=== PATIENT | female | born 1995 | race African-American/Black ===

== ENCOUNTER 2016-07-01 05:26 | Inpatient (IN) | payer OTHER ==
[~2016-07-01] VITALS: Ht 170.2 cm; Wt 136.4 kg
[~2016-07-01 05:26] MED LIST: ESTRADIOL2 MG PO; ORTHO CYCLEN1 TABLET PO; SERTRALINE HCL50 MG PO
[2016-07-01 06:04] LABS: EOSINOPHIL (%) 0.3 % (0-5); HEMATOCRIT 42.8 % (36.0-46.0); IMMATURE GRANULOCYTE (%) 0.4 % (0.0-0.7); IMMATURE GRANULOCYTE COUNT 0.1 K/uL; INSTRUMENT ABS NEUTROPHIL CT 9.3 K/uL; MCV 87.3 FL (83-99); MEAN PLAT.VOLUME 9.6 uM^3 (9.5-12.4); MONOCYTE (%) 4.5 % (3-12); MONOCYTE COUNT 0.6 K/uL (0-0.8); NEUTROPHIL (%) 71.2 % (45-76); NEUTROPHIL COUNT 9.3 K/uL (1.8-6.4); PLATELET COUNT 543 K/uL (156-360); RBC DIS.WIDTH-CV 13.7 % (11.8-14.6); RBC DIS.WIDTH-SD 43.9 % (39-53)
[2016-07-01 06:12] LABS: CHLORIDE 107 mEq/L (99-109); POTASSIUM 3.4 mEq/L (3.7-5.4); SODIUM 137 mEq/L (136-147)
[2016-07-01 06:14] LABS: GLUCOSE 113 mg/dL (70-99)
[2016-07-01 06:15] LABS: ANION GAP 10 MEQ/L (2-14)
[2016-07-01 06:16] LABS: TOTAL BILIRUBIN 0.3 mg/dL (0.0-1.0)
[2016-07-01 06:17] LABS: SERUM ETHYL ALCOHOL < 10 mg/dL
[2016-07-01 06:18] LABS: ALKALINE PHOSPHATASE 81 IU/L (3-129); GFR ESTIMATE (CALCULATED) > 59 mL/min/
[2016-07-01 06:19] LABS: DIRECT BILIRUBIN 0.2 mg/dL (0.0-0.3)
[2016-07-01 06:20] LABS: UREA NITROGEN (BUN) 9 mg/dL (9-23)
[2016-07-01 06:21] LABS: SALICYLATE < 5.0 MG/DL (15-30)
[2016-07-01 10:46] LABS: ADD MEDTOX COMMENT Y; AMPHETAMINE NEGATIVE (500 ng/mL); BARBITURATES NEGATIVE (200 ng/mL); BENZODIAZEPINES NEGATIVE (150 ng/mL); COCAINE NEGATIVE (150 ng/mL); INTERNAL CONTROLS VALID? YES; METHADONE NEGATIVE (200 ng/mL); METHAMPHETAMINE NEGATIVE (500 ng/mL); OPIATES (MORPHINE) PRESUMPTIVE POSITIVE (100 ng/mL); OXYCODONE NEGATIVE (100 ng/mL); PHENCYCLIDINE NEGATIVE (25 ng/mL); PROPOXYPHENE NEGATIVE (300 ng/mL); THC CANNABINOIDS NEGATIVE (50 ng/mL); TRICYCLIC ANTIDEPRESSANTS NEGATIVE (300 ng/mL)
[2016-07-01] MEDS ORDERED: TRI-ESTARYLLA1 EACH PO (15:57)
[2016-07-01 16:31] VITALS: BP 139/95
[2016-07-01] MEDS ORDERED: MOTRIN400 MG PO (18:38)
[2016-07-02 07:26] VITALS: BP 143/94
[2016-07-02 15:47] VITALS: BP 151/85
[2016-07-03 07:50] VITALS: BP 139/83
[2016-07-03 15:47] VITALS: BP 155/91
[2016-07-03 19:35] VITALS: BP 154/88
[2016-07-04 08:00] VITALS: BP 146/78
== END 2016-07-04 11:20 | disposition home or self-care (01) | DRG 885 ==
LOC: EME 05:26 → EDOF 14:52 → 1WEST 14:52
PROVIDERS: Emergency Medicine
DX: F33.9 Major depressive disorder, recurrent, unspecified (principal); E66.3 Overweight; Z68.42 Body mass index [BMI] 45.0-49.9, adult; T40.4X2A Poisoning by other synthetic narcotics, intentional self-harm, initial encounter; T43.202A Poisoning by unspecified antidepressants, intentional self-harm, initial encounter; T40.2X2A Poisoning by other opioids, intentional self-harm, initial encounter; F60.3 Borderline personality disorder
CPT/HCPCS: 80048; 80076; 84999; 85025; 90837; 93005; 97165 GO; 99281; 99285; G0480; J2765; J7030

== ENCOUNTER 2016-07-08 14:57 | Emergency (ER) | payer OTHER ==
[~2016-07-08] VITALS: Ht 170.2 cm; Wt 137.4 kg
[~2016-07-08 14:57] MED LIST changes: +MOTRIN400 MG PO; +TRI-ESTARYLLA1 EACH PO
[2016-07-08 18:00] LABS: ADD MIUA? YES; BILIRUBIN NEGATIVE; BLOOD NEGATIVE; COLOR YELLOW ((YELLOW)); GLUCOSE (STRIP) NEGATIVE; KETONES NEGATIVE; LEUKOCYTES NEGATIVE; NITRITE NEGATIVE; PROTEIN (STRIP) NEGATIVE; SPECIFIC GRAVITY 1.029 (1.000-1.030); UROBILINOGEN 0.2 MG/DL (0.2-1.0)
[2016-07-08 18:05] LABS: BACTERIA RARE /HPF; EPITHELIAL CELLS 1+ /HPF; MUCUS TRACE /LPF; WHITE BLOOD CELLS 0-5 /HPF (0-5)
[2016-07-08 18:19] LABS: HEMATOCRIT 40.5 % (36.0-46.0); MCH 27.8 PG (29.0-34.0); MCHC 31.6 G/DL (30.0-36.0); MEAN PLAT.VOLUME 9.7 uM^3 (9.5-12.4); PLATELET COUNT 519 K/uL (156-360); RBC DIS.WIDTH-CV 13.6 % (11.8-14.6); WHITE BLOOD COUNT 11.3 K/uL (4.1-10.2)
[2016-07-08 18:28] LABS: AMPHETAMINE NEGATIVE (500 ng/mL); BARBITURATES NEGATIVE (200 ng/mL); BENZODIAZEPINES NEGATIVE (150 ng/mL); COCAINE NEGATIVE (150 ng/mL); INTERNAL CONTROLS VALID? YES; METHADONE NEGATIVE (200 ng/mL); METHAMPHETAMINE NEGATIVE (500 ng/mL); OPIATES (MORPHINE) NEGATIVE (100 ng/mL); OXYCODONE NEGATIVE (100 ng/mL); PHENCYCLIDINE NEGATIVE (25 ng/mL); PROPOXYPHENE NEGATIVE (300 ng/mL); THC CANNABINOIDS NEGATIVE (50 ng/mL); TRICYCLIC ANTIDEPRESSANTS NEGATIVE (300 ng/mL)
[2016-07-08 18:30] LABS: CHLORIDE 108 mEq/L (99-109); POTASSIUM 3.9 mEq/L (3.7-5.4); SODIUM 138 mEq/L (136-147)
[2016-07-08 18:31] LABS: GLUCOSE 94 mg/dL (70-99)
[2016-07-08 18:33] LABS: ANION GAP 8 MEQ/L (2-14)
[2016-07-08 18:35] LABS: GFR ESTIMATE (CALCULATED) > 59 mL/min/
[2016-07-08 18:36] LABS: UREA NITROGEN (BUN) 15 mg/dL (9-23)
[2016-07-08 18:45] LABS: QUANTITATIVE HCG < 4.0 MIU/ML
[2016-07-08 20:24] VITALS: BP 156/107
== END 2016-07-08 20:25 | disposition home or self-care (01) ==
LOC: EME 14:57
PROVIDERS: Physician Assistant
DX: G43.909 Migraine, unspecified, not intractable, without status migrainosus (principal)
CPT/HCPCS: 70450; 80048; 81003; 84702; 85027; 99281; 99284; J1885